=== PATIENT | male | born 1995 | race Caucasian/White ===

== ENCOUNTER 2018-05-10 17:14 | Emergency (ER) | payer SELFPAY ==
[2018-05-10 17:34] VITALS: BP 146/98
[2018-05-10] MEDS ORDERED: Lidocaine 2% PF * 5 ML VIAL INJ ONE (18:07)
--- NOTE | 2018-05-10 18:33 | UC ---
Laceration HPI - HPI Summary HPI Summary: PT HERE FROM [place] VISITING A FRIEND. THEY WERE IN A GORGE WHEN HE SLIPPED AND FELL. CUT RIGHT HAND ON A GLASS BOTTLE HE WAS CARRYING AND CUT LEFT LEG ON A ROCK. NO HEAD INJURY. UTD TETANUS. - History Of Current Complaint Chief Complaint: UCUpperExtremity Stated Complaint: L HAND INJURY Time Seen by Provider: 05/10/18 17:56 Hx Obtained From: Patient Laceration Location: Hand - RIGHT Mechanism Of Injury: Sharp Trauma Onset/Duration: Sudden Onset, Lasting Hours Severity: Moderate Pain Intensity: 3 Pain Scale Used: 0-10 Numeric Aggravating Factors: Movement Related History: Dominant Hand Right - Allergies/Home Medications Allergies/Adverse Reactions: Allergies Allergy/AdvReac Type Severity Reaction Status Date / Time No Known Allergies Allergy Verified 05/10/18 17:34 Home Medications: Home Medications Ibuprofen TAB* [Motrin TAB* 600 MG] 600 mg PO Q6H PRN 05/10/18 [History Confirmed 05/10/18] PMH/Surg Hx/FS Hx/Imm Hx Previously Healthy: Yes - Surgical History Surgical History: Yes Surgery Procedure, Year, and Place: wisdom teeth removed - Family History Known Family History: Negative: Hypertension - Social History Alcohol Use: Weekly Substance Use Type: None Smoking Status (MU): Never Smoked Tobacco Review of Systems Constitutional: Negative Skin: Other - LACERATION X 3 Respiratory: Negative Cardiovascular: Negative Gastrointestinal: Negative All Other Systems Reviewed And Are Negative: Yes Physical Exam Triage Information Reviewed: Yes Appearance: Well-Appearing, No Pain Distress, Well-Nourished Vital Signs: Initial Vital Signs Temp 97.8 F 05/10/18 17:30 Pulse 59 05/10/18 17:30 Resp 18 05/10/18 17:30 BP 146/98 05/10/18 17:30 Pulse Ox 100 05/10/18 17:30 Vital Signs Reviewed: Yes Eyes: Positive: Conjunctiva Clear ENT: Positive: Hearing grossly normal Neck: Positive: Supple Respiratory: Positive: No respiratory distress, No accessory muscle use Cardiovascular: Positive: Pulses Normal Abdomen Description: Positive: Soft Musculoskeletal: Positive: ROM Intact, No Edema, Other: - PT WITH FULL ROM RIGHT HAND BUT FLEXION 4TH FINGER IS WEAK Neurological: Positive: Alert Psychological: Positive: Age Appropriate Behavior Skin: Positive: Other - RIGHT HAND LINEAR LACERATION X 2 (3.5CM AND 2.5CM). LEFT LEG LINEAR LACERATION MEDIAL KNEE (3.5CM) Laceration Repair - Laceration Repair 1 Procedure Summary: RIGHT PALM Description: Linear Laceration Size After Repair: Length (cm) - 2.5CM, Width (mm) - 0MM, Depth (mm) - 5MM Modified For Repair: No Anesthesia Used: 2.0% Lido Irrigation With Pressure Irrigation Device: Yes Closure Material: Sutures - 6 SIMPLE INTERRUPTED Closure Method: Single Layer Suture Of: Skin Suture Type: Prolene - 5-0 2 Procedure Summary: RIGHT HAND HYPOTHENAR EMINENCE Description: Linear Laceration Size After Repair: Length (cm) - 3.5CM, Width (mm) - 0MM, Depth (mm) - 2MM Modified For Repair: No Anesthesia Used: 2.0% Lido Cleansing Completed Via Routine Prep: Yes Closure Material: Sutures - 5 SIMPLE INTERRUPTED Closure Method: Single Layer Suture Of: Skin Suture Type: Prolene - 5-0 3 Procedure Summary: LEFT LEG MEDIAL KNEE Description: Linear Laceration Size After Repair: Length (cm) - 3.5CM, Width (mm) - 0MM, Depth (mm) - 2MM Modified For Repair: No Anesthesia Used: 2.0% Lido Cleansing Completed Via Routine Prep: Yes Closure Material: Sutures - 4 SIMPLE INTERRUPTED Closure Method: Single Layer Suture Of: Skin Suture Type: Prolene - 5-0 Laceration Course/Dx - Course/Dx Course Of Treatment: LACERATIONS X 3 REPAIRED. PT WITH PROBABLE FLEXOR TENDON INJURY RIGHT 4TH FINGER. HE PREFERS TO FOLLOW-UP WITH ORTHO IN [place]. HE IS GOING HOME TO [place] TOMORROW. CHANGE BANDAGES DAILY. KEFLEX FOR INFECTION PROPHYLAXIS. - Differential Dx - Laceration/Wound Provider Diagnoses: 1. RIGHT HAND LACERATION X 2 - REPAIRED. 2. LEFT LEG LACERATION - REPAIRED Discharge - Sign-Out/Discharge Documenting (check all that apply): Patient Departure All imaging exams completed and their final reports reviewed: No Studies - Discharge Plan Condition: Stable Disposition: HOME Prescriptions: Cephalexin CAP* [Keflex 500 CAP*] 1,000 mg PO BID #20 cap Patient Education Materials: Laceration (ED) Referrals: No Primary Care Phys,NOPCP [Primary Care Provider] - Additional Instructions: KEEP DRESSINGS IN PLACE AND DRY FOR THE FIRST 24 HRS. THEN YOU MAY REMOVE THE DRESSING AND GENTLY CLEANSE WITH SOAP AND WATER. PAT DRY AND RE-BANDAGE. APPLY THIN LAYER ANTIBIOTIC OINTMENT UNDER BANDAGE FOR FIRST 3-4 DAYS ONLY. CHANGE BANDAGE DAILY AND NEEDED IF IT BECOMES SOILED OR WET. TAKE THE ANTIBIOTICS TO HELP PREVENT INFECTION. SEEK FOLLOW-UP IF YOU DEVELOP SPREADING REDNESS OF THE SKIN, PURULENT DRAINAGE, FEVER, INCREASED PAIN OR ANY OTHER CONCERNING SYMPTOMS. HAVE YOUR SUTURES REMOVED IN 10 DAYS (4 IN LEFT LEG, 5 AND 6 IN RIGHT HAND ON YOUR 2 HAND LACERATIONS) FOLLOW-UP WITH YOUR ORTHOPEDIST IN [place] ON SATURDAY MORNING TO EVALUATE FOR TENDON DAMAGE. - Billing Disposition and Condition Condition: STABLE Disposition: Home
[2018-05-10] MEDS ORDERED: Ibuprofen TAB* 600 MG PO ONE (19:30)
== END 2018-05-10 19:45 | disposition home or self-care (01) ==
LOC: UCEAST 17:14
DX: S61.411A Laceration without foreign body of right hand, initial encounter (principal); S81.012A Laceration without foreign body, left knee, initial encounter; W18.49XA Other slipping, tripping and stumbling without falling, initial encounter; W01.110A Fall on same level from slipping, tripping and stumbling with subsequent striking against sharp glass, initial encounter; W26.8XXA Contact with other sharp object(s), not elsewhere classified, initial encounter; Y93.89 Activity, other specified; Y92.838 Other recreation area as the place of occurrence of the external cause
CPT/HCPCS: 12004; 99202; A9270-GY; G0463